=== PATIENT | female | born 1945 | race Caucasian/White ===

== ENCOUNTER 2016-10-29 09:47 | Outpatient (CLI) | payer OTHER ==
[~2016-10-29 09:47] MED LIST: CEPHALEXIN500 MG PO; FUROSEMIDE40 MG PO; HUMALOG100 MG/ML; HYDRALAZINE HCL25 MG PO; LANTUS SOL100 UNITS/ SC; LISINOPRIL10 MG PO; LOPRESSOR25 MG PO; LOVASTATIN40 MG PO; METOPROLOL TART25 MG PO
--- NOTE | 2016-10-29 10:46 | DIAGNOSTIC IMAGING REPORT ---
PROCEDURE: XR KNEE 3 VIEWS - RIGHT INDICATION: INTERNAL DERANGEMENT OF R KNEE, ACTINIC KERATOSIS TECHNIQUE: Three views. COMPARISON: None. FINDINGS: There is osteoarthritis involving the medial compartment with joint space narrowing and sclerosis of the endplates. IMPRESSION: 1. Osteoarthritis right knee
== END 2016-10-29 23:00 ==
LOC: XR SRH 09:47
DX: M23.91 Unspecified internal derangement of right knee (principal); L57.0 Actinic keratosis